=== PATIENT | female | born 1990 | race Caucasian/White ===

== ENCOUNTER 2023-12-09 22:50 | Emergency (ER) | payer SELFPAY ==
[2023-12-09] MEDS ORDERED: Ondansetron ODT 4 MG TAB ONE (23:55)
[2023-12-09] MEDS ORDERED: Acetaminophen 500 MG TAB ONE (23:55)
[2023-12-09] MEDS ORDERED: Ibuprofen 800 MG TAB ONE (23:55)
[2023-12-10 00:35] LABS: Influenza A by NAA Not Detected (NotDetected); Influenza B by NAA Not Detected (NotDetected); SARS-CoV-2 NAA Rapid Test Not Detected (NotDetected)
[2023-12-10 00:51] LABS: Bilirubin Negative (Negative); Blood, Urine Moderate (Negative); Glucose, Urine (Dipstick) Negative (Negative); Ketone, Urine Trace mg/dL (Negative); Leukocyte Large (Negative); Nitrite Negative (Negative); Pregnancy Test - Urine (BHCG) Negative (Negative); Pregu Control Background? CLEAR/WHITE (CLR/WHITE); Pregu Control Bar Appear? YES (CONTROL BAR); Protein, Urine (Dipstick) 100 mg/dL (Neg-Trace); Specific Gravity 1.015 (1.002-1.036); Specific Gravity, Urine 1.015 (1.005-1.030); Urobilinogen 0.2 mg/dL (Less than 2)
[2023-12-10 00:58] LABS: Bacteria/HPF 1+ HPF (None Seen); CAUTI Indications for Culture Dysuria,urgency,freq; Clarity Cloudy (Clear); RBC/HPF 0-3 HPF (0-3); Squamous Epithelial 0-3 HPF (0-3); WBC/HPF Greater than 50 HPF (0-3)
[2023-12-10 00:59] LABS: Urine Culture Reflex Yes Yes
[2023-12-10] MEDS ORDERED: Sterile Water 10 ML ONE (01:06)
[2023-12-10] MEDS ORDERED: cefTRIAXone (ROCEPHIN) 1 GM VIAL ONE (01:06)
== END 2023-12-10 01:41 | disposition home or self-care (01) ==
LOC: MADERS 22:50
DX: N39.0 Urinary tract infection, site not specified (principal); J06.9 Acute upper respiratory infection, unspecified; F17.290 Nicotine dependence, other tobacco product, uncomplicated
CPT/HCPCS: 71045; 81001; 81025; 87086; 96372; J0696; Q0162